=== PATIENT | female | born 1935 | race Two or more races ===

== ENCOUNTER 2017-01-25 12:45 | Inpatient (IN) | payer OTHER ==
--- NOTE | 2017-01-25 13:36 | PDOC ---
History of Present Illness - General Chief Complaint: Cold Symptoms Stated Complaint: COUGH, SORE THROAT, & COLD SYMPTOMS Time Seen by Provider: 01/25/17 13:01 History Source: Patient Exam Limitations: No Limitations - History of Present Illness Initial Comments: 01/25/17 13:28 THis is an 81 yo F with a history of hypertension, arthritis who presents emergency department with cough, rhinorrhea, sore throat. Symptoms reportedly began 4 days ago. Patient called to see her primary care physician, PMD told her to go to the emergency department. Patient symptoms include subjective fevers, cough productive of white phlegm. Patient is fatigued and has having difficulty carrying out her normal activities at home. Patient also reports a sore throat. Patient denies chest pain or shortness of breath. Patient has noted decreased oral intake. Patient has not traveled. Patient denies ill contacts. Patient reportedly refused to take her flu shot or pneumococcal vaccination. PMH: Hypertension, arthritis PSH: Denies Medication: Fosamax, aspirin, losartan/hydrochlorothiazide ALL: NKDA Social: No tobacco, drug, alcohol use GENERAL/CONSTITUTIONAL: Yes: subjective fevers, chills, weakness, loss of appetite. HEAD, EYES, EARS, NOSE AND THROAT: Yes: sore throat No: change in vision, ear pain, discharge. CARDIOVASCULAR: No: chest pain, lightheadedness, palpitations, syncope RESPIRATORY: Yes: cough No: shortness of breath, wheezing, hemoptysis, stridor. GASTROINTESTINAL: No: nausea, vomiting, diarrhea, abdominal pain. GENITOURINARY: No: dysuria, hematuria, frequency, urgency, flank pain. MUSCULOSKELETAL: No: back pain, neck pain, joint pain, muscle swelling or pain SKIN AND BREASTS: No: lesions, pallor, rash or easy bruising. NEUROLOGIC: No: headache, vertigo, paresthesias, weakness ENDOCRINE: No: unexplained weight gain or loss HEMATOLOGIC/LYMPHATIC: No: anemia, easy bleeding, swelling nodes. GENERAL: The patient is in no acute distress. HEAD: Normal with no signs of trauma. EYES: PERRLA, EOMI, sclera anicteric, conjunctiva clear. ENT: Ears normal, nares patent, oropharynx clear without exudates. Moist mucous membranes. NECK: Normal range of motion, supple without lymphadenopathy, JVD, or masses. LUNGS: (+) Left lower lobe crackles otherwise Breath sounds equal, clear to auscultation bilaterally. No wheezes. HEART:Regular rate and rhythm, normal S1 and S2 without murmur, rub or gallop. ABDOMEN: Soft, nontender, normoactive bowel sounds. No guarding, no rebound. No masses palpable. EXTREMITIES: Normal range of motion, no edema. No clubbing or cyanosis. No erythema, or tenderness. NEUROLOGICAL: Cranial nerves II through XII grossly intact. Normal speech. No focal neurological deficits. MUSCULOSKELETAL: Back non-tender to palpation, no CVA tenderness SKIN: Warm, Dry, normal turgor, no rashes or lesions noted. Past History - Past Medical History Allergies/Adverse Reactions: Allergies Allergy/AdvReac Type Severity Reaction Status Date / Time No Known Allergies Allergy Verified 01/25/17 12:53 Home Medications: Ambulatory Orders Alendronate Na [Fosamax (Weekly)] 70 mg PO Q7D 01/25/17 Aspirin [Aspirin EC] 81 mg PO DAILY 01/25/17 Cholecalciferol (Vitamin D3) [Vitamin D3 -] 1,000 unit PO DAILY 01/25/17 Losartan/Hydrochlorothiazide [Losartan-Hctz 100-25 mg Tab] 1 each PO DAILY 01/25 Azithromycin 250 mg PO DAILY #3 tablet 01/26/17 Cefuroxime Axetil [Ceftin -] 500 mg PO Q12H #10 tablet 01/26/17 Guaifenesin [Robitussin -] 10 ml PO Q6H PRN #120 ml MDD 40 01/26/17 Nystatin Ointment [Mycostatin Ointment -] 1 applic TP BID #1 applic 01/26/17 HTN: Yes - Psycho/Social/Smoking Cessation Hx Anxiety: No Suicidal Ideation: No Smoking History: Never smoked Hx Alcohol Use: No Drug/Substance Use Hx: No Substance Use Type: Alcohol *Physical Exam - Vital Signs Last Vital Signs Temp Pulse Resp BP Pulse Ox 97.6 F 85 20 146/52 98 01/25/17 12:52 01/25/17 12:52 01/25/17 12:52 01/25/17 12:52 01/25/17 12:52 ED Treatment Course - LABORATORY CBC & Chemistry Diagram: 01/26/17 08:13 01/26/17 08:13 Medical Decision Making - Medical Decision Making 01/25/17 13:36 Will do labs Will do Chest Xray Will discharge if stable on Azithromycin 01/25/17 14:56 Laboratory Tests 01/25/17 01/25/17 13:55 13:55 WBC 10.8 H Hgb 13.3 Hct 39.8 Plt Count 174 Neutrophils % 74.3 Lymphocytes % 14.5 Sodium 134 L Potassium 3.3 L Chloride 95 L Carbon Dioxide 30 H BUN 31 H Creatinine 0.9 Random Glucose 108 H CXR: Right middle lobe infiltrate CURB-65 = [address] on observation Case reviewed with LACQUER COATER Ivon Will place on observation to hospitalist *DC/Admit/Observation/Transfer Diagnosis at time of Disposition: Pneumonia Qualifiers: Pneumonia type: due to unspecified organism Laterality: right Lung location: middle lobe of lung Qualified Code(s): J18.1 - Lobar pneumonia, unspecified organism - Discharge Dispostion Condition at time of disposition: Improved Admit: Yes - Prescriptions
[2017-01-25 14:29] LABS: BASOPHIL 0.4 % (0-2.0); EOSINOPHIL 0.2 % (0-4.5); MCH 26.9 pg (25.7-33.7); MCHC 33.3 g/dl (32.0-36.0); MEAN CELL VOLUME 80.8 fl (80-96); MEAN PLT VOLUME 10.2 fl (7.5-11.1); NEUTROPHILS 74.3 % (42.8-82.8); PLATELET COUNT 174 K/MM3 (134-434); WHITE BLOOD COUNT 10.8 K/mm3 (4.0-10.0)
[2017-01-25] MEDS ORDERED: CEFTRIAXONE 1 GM in DEXTROSE 5%-WATER - 50 ML IVPB ONE (14:29)
[2017-01-25] MEDS ORDERED: AZITHROMYCIN IVPB 500 MG in DEXTROSE 5%-WATER - 250 ML IVPB ONE (14:29)
[2017-01-25 14:37] LABS: ALBUMIN 3.4 g/dl (3.5-5.0); ALK PHOS 43 U/L (32-92); ANION GAP 9 (8-16); BILIRUBIN,TOTAL 0.3 mg/dl (0.2-1.0); CALCIUM 8.8 mg/dl (8.4-10.2); CO2 30 mmol/L (22-28); CREATININE 0.9 mg/dl (0.6-1.3); GLUCOSE,RANDOM 108 mg/dl (74-106); SGOT/AST 31 U/L (10-42); SGPT/ALT 23 U/L (10-40); TOT PROT 6.8 g/dl (6.4-8.3)
[2017-01-25] MEDS ORDERED: AZITHROMYCIN 500 MG VIAL IVPB ONE (14:40)
[2017-01-25] MEDS ORDERED: cefTRIAXone SODIUM 1 GM VIAL ONE (14:40)
[2017-01-25] MEDS ORDERED: SODIUM CHLORIDE 1,000 ML IV SCH (15:15)
[2017-01-25] MEDS ORDERED: ACETAMINOPHEN 325 MG TABLET (FP) PO PRN (15:15)
[2017-01-25 18:57] VITALS: BMI 29.9
--- NOTE | 2017-01-25 19:29 | HP ---
History & physical obtained with assistance of [employer] [place] slip presser # [id number] CHIEF COMPLAINT: Cough PCP: Dr. Horner HISTORY OF PRESENT ILLNESS: This is an 81 year old [place] female with a history of HTN and osteoporosis who presented to the ED today complaining of 4 days of cough productive of white sputum, subjective fever, throat pain, and nasal congestion. She has not had shortness of breath, chest pain, lower extremity edema, PND, orthopnea, or any other symptoms. ER course was notable for: (1) CXR: RML infiltrate (2) BUN 31 Recent Travel: None PAST MEDICAL HISTORY: As above PAST SURGICAL HISTORY: None Social History: College graduate, used to work for [employer] in [place]. Lives with son and [id number], has [facility] services 20h/wk. Smoking: Never smoker Alcohol: None Family History: Non-contributory to this admission Allergies No Known Allergies Allergy (Verified 01/25/17 12:53) HOME MEDICATIONS: Home Medications Medication Instructions Recorded Alendronate Na [Fosamax] 70 mg PO Q7D 01/25/17 Aspirin [Aspirin EC] 81 mg PO DAILY 01/25/17 Cholecalciferol (Vitamin D3) 1,000 unit PO DAILY 01/25/17 [Vitamin D3 -] Losartan/Hydrochlorothiazide 1 each PO DAILY 01/25/17 [Losartan-Hctz 100-25 mg Tab] REVIEW OF SYSTEMS CONSTITUTIONAL: Subjective fever Absent: diaphoresis, generalized weakness, malaise, loss of appetite, weight change HEENT: Nasal congestion, throat pain Absent: difficulty swallowing, mouth swelling, ear pain, eye pain, visual changes CARDIOVASCULAR: Absent: chest pain, syncope, palpitations, irregular heart rate, lightheadedness , peripheral edema RESPIRATORY: Productive cough Absent: shortness of breath, dyspnea with exertion, orthopnea, wheezing, stridor , hemoptysis GASTROINTESTINAL: Absent: abdominal pain, abdominal distension, nausea, vomiting, diarrhea, constipation, melena, hematochezia GENITOURINARY: Absent: dysuria, frequency, urgency, hesitancy, hematuria, flank pain, genital pain MUSCULOSKELETAL: Absent: myalgia, arthralgia, joint swelling, back pain, neck pain SKIN: Absent: rash, itching, pallor HEMATOLOGIC/IMMUNOLOGIC: Absent: easy bleeding, easy bruising, lymphadenopathy, frequent infections ENDOCRINE: Absent: unexplained weight gain, unexplained weight loss, heat intolerance, cold intolerance NEUROLOGIC: Absent: headache, focal weakness or paresthesias, dizziness, unsteady gait, seizure, mental status changes, bladder or bowel incontinence PSYCHIATRIC: Absent: anxiety, depression, suicidal or homicidal ideation, hallucinations. PHYSICAL EXAMINATION Vital Signs - 24 hr 01/25/17 18:36 Temperature 98.5 F Pulse Rate 70 Respiratory 20 Rate Blood Pressure 134/47 GENERAL: Awake, alert, and fully oriented, in no acute distress. HEAD: Normal with no signs of trauma. EYES: Pupils equal, round and reactive to light, extraocular movements intact, sclera anicteric, conjunctiva clear. No lid lag. EARS, NOSE, THROAT: Ears normal, nares patent, oropharynx clear without exudates. Moist mucous membranes. NECK: Normal range of motion, supple without lymphadenopathy, JVD, or masses. LUNGS: Breath sounds diminished right base, scattered ronchi. No wheezes, and no crackles. No accessory muscle use. HEART: Regular rate and rhythm, normal S1 and S2 without murmur, rub or gallop. ABDOMEN: Soft, nontender, not distended, normoactive bowel sounds, no guarding, no rebound, no masses. No hepatomegaly or splenomegaly. MUSCULOSKELETAL: Normal range of motion at all joints. No bony deformities or tenderness. No CVA tenderness. UPPER EXTREMITIES: 2+ pulses, warm, well-perfused. No cyanosis. No clubbing. No peripheral edema. LOWER EXTREMITIES: 2+ pulses, warm, well-perfused. No calf tenderness. No peripheral edema. NEUROLOGICAL: Cranial nerves II-XII intact. Normal speech. Normal gait. PSYCHIATRIC: Cooperative. Good eye contact. Appropriate mood and affect. SKIN: Warm, dry, normal turgor, no rashes or lesions noted, normal capillary refill. ASSESSMENT/PLAN: 81 year old female with pneumonia. CURB-65=2. Problem List - Problem (1) Pneumonia Assessment/Plan: -Ceftriaxone/Azithromycin -Follow up blood cultures, urine antigens -Gentle hydration -Albuterol nebs prn -Follow BUN Code(s): J18.9 - PNEUMONIA, UNSPECIFIED ORGANISM Qualifiers: Pneumonia type: due to unspecified organism Laterality: right Lung location: middle lobe of lung Qualified Code(s): J18.1 - Lobar pneumonia , unspecified organism (2) Hypertension Assessment/Plan: -BPs at goal for age -Hold Losartan/HCTZ for now (BUN 31) Code(s): I10 - ESSENTIAL (PRIMARY) HYPERTENSION (3) DVT prophylaxis Assessment/Plan: -Ambulation -[facility] Code(s): [id number] - Visit type - Emergency Visit Emergency Visit: Yes ED Registration Date: 01/25/17 Care time: The patient presented to the Emergency Department on the above date and was hospitalized for further evaluation of their emergent condition. - New Patient This patient is new to me today: Yes Date on this admission: 01/25/17 - Critical Care Critical Care patient: No
[2017-01-25] MEDS ORDERED: POTASSIUM CHLORIDE TABS 20 MEQ TABLET.ER (FP) PO ONE (19:40)
[2017-01-25] MEDS ORDERED: guaiFENesin 200 MG/10 ML 10 ML UNIT-DOSE CUPS PO PRN (19:41)
[2017-01-25] MEDS: HEPARIN NA (PORCINE) 5,000 UNITS/ML 1ML VIAL SQ SCH (21:18)
[2017-01-25] MEDS: DOCUSATE SODIUM 100 MG CAPSULE (FP) PO SCH (21:18)
[2017-01-25] MEDS: NYSTATIN 100000 UNIT/GM TOPICAL OINTMENT 15 GM TUBE TP SCH (22:39)
[2017-01-26] MEDS: DOCUSATE SODIUM 100 MG CAPSULE (FP) PO SCH ×2 (06:53→17:03)
[2017-01-26 08:21] LABS: BASOPHIL 1.1 % (0-2.0); EOSINOPHIL 0.1 % (0-4.5); MCH 27.2 pg (25.7-33.7); MCHC 33.4 g/dl (32.0-36.0); MEAN CELL VOLUME 81.3 fl (80-96); MEAN PLT VOLUME 9.4 fl (7.5-11.1); NEUTROPHILS 76.8 % (42.8-82.8); PLATELET COUNT 186 K/MM3 (134-434); RDW 13.6 % (11.6-15.6)
--- NOTE | 2017-01-26 08:41 | PN ---
Physical Exam: SUBJECTIVE: Patient seen and examined OBJECTIVE: Vital Signs Period Temp Pulse Resp BP Sys/Hines Pulse Ox Last 24 Hr 98.5 F-99.0 F 70-75 17-20 127-134/44-47 94 GENERAL: The patient is awake, alert, and fully oriented, in no acute distress. HEAD: Normal with no signs of trauma. EYES: PERRL, extraocular movements intact, sclera anicteric, conjunctiva clear. No ptosis. ENT: Ears normal, nares patent, oropharynx clear without exudates, moist mucous membranes. NECK: Trachea midline, full range of motion, supple. LUNGS: Breath sounds equal, clear to auscultation bilaterally, no wheezes, no crackles, no accessory muscle use. HEART: Regular rate and rhythm, S1, S2 without murmur, rub or gallop. ABDOMEN: Soft, nontender, nondistended, normoactive bowel sounds, no guarding, no rebound, no hepatosplenomegaly, no masses. EXTREMITIES: 2+ pulses, warm, well-perfused, no edema. NEUROLOGICAL: Cranial nerves II through XII grossly intact. Normal speech, gait not observed. PSYCH: Normal mood, normal affect. SKIN: Warm, dry, normal turgor, no rashes or lesions noted Laboratory Results - last 24 hr 01/26/17 08:13 WBC 10.0 RBC 4.65 Hgb 12.6 Hct 37.8 MCV 81.3 MCHC 33.4 RDW 13.6 Plt Count 186 MPV 9.4 Neutrophils % 76.8 Lymphocytes % 11.9 Monocytes % 10.1 Eosinophils % 0.1 Basophils % 1.1 Active Medications Generic Name Dose Route Start Last Admin Trade Name Freq PRN Reason Stop Dose Admin Acetaminophen 650 mg 01/25/17 15:15 Tylenol - PO Q4H PRN FEVER OR PAIN Aspirin 81 mg 01/26/17 10:00 Ecotrin - PO DAILY KHLOE Cholecalciferol 1,000 unit 01/26/17 10:00 Vitamin D3 - PO DAILY KHLOE Docusate Sodium 100 mg 01/25/17 22:00 01/26/17 06:53 Colace - PO Not Given TID KHLOE Guaifenesin 10 ml 01/25/17 19:41 Robitussin - PO Q6H PRN COUGH Heparin Sodium (Porcine) 5,000 unit 01/25/17 22:00 01/25/17 21:18 Heparin - SQ Not Given BID [facility] Azithromycin 250 mls @ 250 mls/hr 01/26/17 10:00 Zithromax 500mg Ivpb (Pre-Docked) IVPB DAILY [facility] Ceftriaxone Sodium 50 mls @ 100 mls/hr 01/26/17 10:00 Rocephin 1gm Ivpb (Pre-Docked) IVPB DAILY [facility] Nystatin 1 applic 01/25/17 22:00 01/25/17 22:39 Mycostatin Ointment - TP 1 applic BID [facility] Administration ASSESSMENT/PLAN: Problem List - Problems (1) Pneumonia Code(s): J18.9 - PNEUMONIA, UNSPECIFIED ORGANISM Qualifiers: Pneumonia type: due to unspecified organism Laterality: right Lung location: middle lobe of lung Qualified Code(s): J18.1 - Lobar pneumonia , unspecified organism (2) Hypertension Code(s): I10 - ESSENTIAL (PRIMARY) HYPERTENSION (3) DVT prophylaxis Code(s): [id number] -
[2017-01-26 08:43] LABS: ALK PHOS 43 U/L (32-92); ANION GAP 6 (8-16); BILIRUBIN,TOTAL 0.6 mg/dl (0.2-1.0); CALCIUM 8.4 mg/dl (8.4-10.2); CO2 29 mmol/L (22-28); COCKROFT - GAULT 60.4435; CREATININE 0.8 mg/dl (0.6-1.3); GLUCOSE,RANDOM 110 mg/dl (74-106); SGOT/AST 27 U/L (10-42); SGPT/ALT 22 U/L (10-40); TOT PROT 6.3 g/dl (6.4-8.3)
--- NOTE | 2017-01-26 09:20 | DS ---
Physical Exam: SUBJECTIVE: Patient seen and examined. States that cough has improved, feeling better. OBJECTIVE: Vital Signs Period Temp Pulse Resp BP Sys/Hines Pulse Ox Last 24 Hr 98.5 F-99.0 F 70-75 17-20 127-134/44-47 94 PHYSICAL EXAM GENERAL: The patient is awake, alert, and fully oriented, in no acute distress. HEAD: Normal with no signs of trauma. EYES: PERRL, extraocular movements intact, sclera anicteric, conjunctiva clear. ENT: Ears normal, nares patent, oropharynx clear without exudates, moist mucous membranes. NECK: Trachea midline, full range of motion, supple. LUNGS: Breath sounds slightly diminished at right base, no wheezes, no crackles , no accessory muscle use. Breathing even and unlabored on room air. HEART: Regular rate and rhythm, S1, S2 without murmur, rub or gallop. ABDOMEN: Soft, nontender, nondistended, normoactive bowel sounds, no guarding, no rebound, no hepatosplenomegaly, no masses. EXTREMITIES: 2+ pulses, warm, well-perfused, no edema. NEUROLOGICAL: Cranial nerves II through XII grossly intact. Normal speech, gait not observed. PSYCH: Normal mood, normal affect. SKIN: Warm, dry, normal turgor, no rashes or lesions noted. LABS Laboratory Results - last 24 hr 01/26/17 01/26/17 08:13 08:13 WBC 10.0 RBC 4.65 Hgb 12.6 Hct 37.8 MCV 81.3 MCHC 33.4 RDW 13.6 Plt Count 186 MPV 9.4 Neutrophils % 76.8 Lymphocytes % 11.9 Monocytes % 10.1 Eosinophils % 0.1 Basophils % 1.1 Sodium 137 Potassium 3.5 Chloride 102 Carbon Dioxide 29 H Anion Gap 6 L BUN 20 H D Creatinine 0.8 Creat Clearance w eGFR > 60 Random Glucose 110 H Calcium 8.4 Total Bilirubin 0.6 D AST 27 ALT 22 Alkaline Phosphatase 43 Total Protein 6.3 L Albumin 3.0 L HOSPITAL COURSE: This is an 81 year old female with a history of HTN and osteoporosis who presented to the ED yesterday complaining of 4 days of cough productive of white sputum, subjective fever, throat pain, and nasal congestion. She has not had shortness of breath, chest pain, lower extremity edema, PND, orthopnea, or any other symptoms. ER course was notable for: (1) CXR: RML infiltrate (2) BUN 31 The patient was placed on Ceftriaxone and Azithromycin IVPB. She was given guaifenesin for cough. A fungal-appearing rash was noted under her breasts and she was placed on Nystatin ointment for this. Because of her high BUN, her Losartan/HCTZ was held and gentle fluids were given. Her K was 3.3 and this was repleted with 20 mEq PO. Today, the patient is feeling better and states that her cough has improved. Lung exam is notable for better aeration at the right base. BUN has improved from 31 to 20. The patient will be discharged home with her family on Ceftin/ Azithromycin. She will follow up with her PCP on Saturday. Return precautions reviewed. Date of Admission:01/25/17 Date of Discharge: 01/26/17 Minutes to complete discharge: 35 Discharge Summary Reason For Visit: PNEUMONIA Current Active Problems DVT prophylaxis (Acute) Hypertension (Acute) Pneumonia (Acute) Condition: Improved - Instructions Diet, Activity, Other Instructions: -Take Ceftin and Azithromycin (antibiotics) as prescribed for pneumonia. -Use guaifenesin syrup as needed for cough. -Apply Nystatin ointment to red areas under breasts. -Follow up with Dr. Liu on Saturday. -Return here for difficulty breathing or any other concerning symptoms. Referrals: Diane Arreguin MD [Primary Care Provider] - Disposition: HOME - Home Medications Comprehensive Discharge Medication List: Ambulatory Orders Alendronate Na [Fosamax] 70 mg PO Q7D 01/25/17 Aspirin [Aspirin EC] 81 mg PO DAILY 01/25/17 Cholecalciferol (Vitamin D3) [Vitamin D3 -] 1,000 unit PO DAILY 01/25/17 Losartan/Hydrochlorothiazide [Losartan-Hctz 100-25 mg Tab] 1 each PO DAILY 01/25 Problem List - Problems (1) Pneumonia Code(s): J18.9 - PNEUMONIA, UNSPECIFIED ORGANISM Qualifiers: Pneumonia type: due to unspecified organism Laterality: right Lung location: middle lobe of lung Qualified Code(s): J18.1 - Lobar pneumonia , unspecified organism (2) Hypertension Code(s): I10 - ESSENTIAL (PRIMARY) HYPERTENSION (3) DVT prophylaxis Code(s): [id number] - This patient is new to me today: No Emergency Visit: Yes ED Registration Date: 01/25/17 Care time: The patient presented to the Emergency Department on the above date and was hospitalized for further evaluation of their emergent condition. Critical Care patient: No - Discharge Referral Referred to [facility] Med [facility] No
[2017-01-26] MEDS ORDERED: CHOLECALCIFEROL (VITAMIN D3) 1,000 UNIT TABLET (FP) PO SCH (10:00)
[2017-01-26] MEDS ORDERED: CEFTRIAXONE 50 ML IVPB SCH (10:00)
[2017-01-26] MEDS ORDERED: ASPIRIN COATED 81 MG TABLET.EC PO SCH (10:00)
[2017-01-26] MEDS ORDERED: AZITHROMYCIN IVPB 250 ML IVPB SCH (10:00)
[2017-01-26] MEDS: NYSTATIN 100000 UNIT/GM TOPICAL OINTMENT 15 GM TUBE TP SCH (11:20)
[2017-01-26] MEDS: HEPARIN NA (PORCINE) 5,000 UNITS/ML 1ML VIAL SQ SCH (11:20)
[2017-01-26 14:21] VITALS: BP 128/45; PULSE 71; TEMP 97.8
--- NOTE | 2017-01-28 09:13 | EKG ---
Test Reason : Blood Pressure : / mmHG Vent. Rate : 076 BPM Atrial Rate : 076 BPM P-R Int : 134 ms QRS Dur : 070 ms QT Int : 394 ms P-R-T Axes : 039 002 009 degrees QTc Int : 443 ms SINUS RHYTHM CANNOT RULE OUT INFERIOR INFARCT NO PREVIOUS ECGS AVAILABLE Confirmed by LUDMILA KIMBALL MD ([id number]) on 01/28/2017 9:12:29 AM Referred By: MD CATALAN Confirmed By:LUDMILA KIMBALL MD
== END 2017-01-26 18:29 | disposition home or self-care (01) | DRG 139 ==
LOC: FER 12:45 → FM/S 16:06 → OBSVTOIN 16:06 → UNDOADMOB 16:28 → FM/S 16:28
PROVIDERS: ADMIT Internal Medicine; ATTEND Registered Nurse Emergency
DX: J18.9 Pneumonia, unspecified organism (principal); I10 Essential (primary) hypertension; M19.90 Unspecified osteoarthritis, unspecified site; M81.0 Age-related osteoporosis without current pathological fracture
CPT/HCPCS: 36415; 71020-TC; 80053; 85025; 87040; 93005; 99284-25; J1644

== ENCOUNTER 2017-06-12 22:00 | Emergency (ER) | payer OTHER ==
[2017-06-12 22:07] VITALS: BP 157/59; PULSE 100; TEMP 98.6; BMI 30.2
--- NOTE | 2017-06-12 22:23 | PDOC ---
History of Present Illness - General Chief Complaint: Diarrhea Stated Complaint: DIARRHEA Time Seen by Provider: 06/12/17 22:02 - History of Present Illness Initial Comments: This 82-year-old woman with a history of hypertension and osteoporosis, presents with 5 day history of loose stools. Typically, stool is formed and soft in the morning and gradually becomes more watery in the afternoon. There are times that there is mucus in the stool but no history of blood or black stool. There has been no nausea or vomiting during this time and patient able to tolerate usual oral intake. The patient denies fever/chills or abdominal pain except cramping just prior to bowel movements. No recent change in medication or unusual food ingestion. She has had no recent oral antibiotics. No recent travel. Patient is taking her medications as prescribed. Past History - Past Medical History Allergies/Adverse Reactions: Allergies Allergy/AdvReac Type Severity Reaction Status Date / Time No Known Allergies Allergy Verified 01/25/17 12:53 Home Medications: Ambulatory Orders Alendronate Na [Fosamax (Weekly)] 70 mg PO Q7D 01/25/17 Aspirin [Aspirin EC] 81 mg PO DAILY 01/25/17 Cholecalciferol (Vitamin D3) [Vitamin D3 -] 1,000 unit PO DAILY 01/25/17 Losartan/Hydrochlorothiazide [Losartan-Hctz 100-25 mg Tab] 1 each PO DAILY 01/25 HTN: Yes - Psycho/Social/Smoking Cessation Hx Anxiety: No Suicidal Ideation: No Smoking History: Unknown if ever smoked Have you smoked in the past 12 months: No Number of Cigarettes Smoked Daily: 0 Information on smoking cessation initiated: No Hx Alcohol Use: No Drug/Substance Use Hx: No Substance Use Type: Alcohol Review of Systems - Review of Systems Able to Perform ROS?: Yes Comments:: 12 point review of systems is negative except for what is noted in the history of present illness *Physical Exam - Vital Signs Last Vital Signs Temp Pulse Resp BP Pulse Ox 98.6 F 100 H 14 157/59 98 06/12/17 22:01 06/12/17 22:01 06/12/17 22:01 06/12/17 22:01 06/12/17 22:01 - Physical Exam Comments: GENERAL: Elderly female, alert and oriented 3, in no acute distress HEAD: Normal with no signs of trauma. EYES: PERRLA, EOMI, sclera anicteric, conjunctiva clear. ENT: Ears normal, nares patent, oropharynx clear without exudates. Dry mucous membranes. NECK: Normal range of motion, supple without lymphadenopathy, JVD, or masses. LUNGS: Breath sounds equal, clear to auscultation bilaterally. No wheezes, and no crackles. HEART:Regular rate and rhythm, normal S1 and S2 without murmur, rub or gallop. ABDOMEN:.normal bowel sounds No guarding,tenderness or rebound.No masses No distention. Rectal exam: Normal tone, no masses, dark brown stool sent for Hemoccult testing EXTREMITIES: Normal range of motion, no edema. No clubbing or cyanosis. No erythema, or tenderness. NEUROLOGICAL: Cranial nerves II through XII grossly intact. Normal speech. No focal neurological deficits. MUSCULOSKELETAL: Back non-tender to palpation, no CVA tenderness SKIN: Warm, Dry, normal turgor, no rashes or lesions noted. ED Treatment Course - LABORATORY CBC & Chemistry Diagram: 06/12/17 22:55 06/12/17 22:55 Progress Note - Progress Note Progress Note: 82-year-old woman presents with several day history of change in bowel movements : Intermittent loose stools without evidence of melena or hematochezia. Of note , patient has no vomiting, fever or abdominal pain. Exam as noted shows no abdominal tenderness. CBC/chemistry profile was sent. CBC is unremarkable with no elevation of white blood cell count. Chemistry profile notable for sodium of 135 with potassium 2.9. There is evidence of prerenal azotemia with BUN of 37 and a creatinine of 1.5 (baseline creatinine is at approximately 1) Hemoccult stool is negative Patient given 40 milliequivalents KCl by mouth. Clinical presentation consistent with acute colitis. In the absence of fever/ elevated white blood cell count, less likely that this is bacterial origin or inflammatory. Patient was instructed to continue to drink plenty of fluids. She should also use Imodium or Pepto-Bismol for control of the diarrhea. Most importantly, patient should follow-up with her general doctor within the next few days. She should return to the emergency room if she develops vomiting or fever *DC/Admit/Observation/Transfer Diagnosis at time of Disposition: Diarrhea Qualifiers: Diarrhea type: unspecified type Qualified Code(s): R19.7 - Diarrhea, unspecified - Discharge Dispostion Disposition: HOME Condition at time of disposition: Stable - Patient Instructions Printed Discharge Instructions: Diarrhea Additional Instructions: Drink plenty of water Continue potassium-rich foods such as bananas Continue Imodium as needed after each loose stool Can also consider Pepto-Bismol as needed Follow-up with your general doctor within the next 5 days Return to ER if you have vomiting/abdominal pain/fever or if you see blood in stool
[2017-06-12 23:13] LABS: BASOPHIL 0.2 % (0-2.0); EOSINOPHIL 1.1 % (0-4.5); MCH 28.7 pg (25.7-33.7); MCHC 35.2 g/dl (32.0-36.0); MEAN CELL VOLUME 81.5 fl (80-96); MEAN PLT VOLUME 9.4 fl (7.5-11.1); NEUTROPHILS 74.6 % (42.8-82.8); PLATELET COUNT 174 K/MM3 (134-434); RDW 13.5 % (11.6-15.6)
[2017-06-12 23:21] LABS: ALBUMIN 3.4 g/dl (3.5-5.0); ALK PHOS 40 U/L (32-92); ANION GAP 8 (8-16); BILIRUBIN,TOTAL 0.5 mg/dl (0.2-1.0); CALCIUM 8.8 mg/dl (8.4-10.2); CO2 27 mmol/L (22-28); CREATININE 1.5 mg/dl (0.6-1.3); GLUCOSE,RANDOM 164 mg/dl (74-106); SGOT/AST 19 U/L (10-42); SGPT/ALT 12 U/L (10-40); TOT PROT 6.2 g/dl (6.4-8.3)
[2017-06-12] MEDS ORDERED: POTASSIUM CHLORIDE TABS 20 MEQ TABLET.ER (FP) PO ONE ×2 (23:44→23:46)
== END 2017-06-12 23:56 | disposition home or self-care (01) ==
LOC: FER 22:00
DX: R19.7 Diarrhea, unspecified (principal); I10 Essential (primary) hypertension; M81.0 Age-related osteoporosis without current pathological fracture
CPT/HCPCS: 36415; 80053; 82272; 85025; 99282-25

== ENCOUNTER 2017-06-19 19:42 | Emergency (ER) | payer OTHER ==
--- NOTE | 2017-06-19 19:53 | PDOC ---
History of Present Illness - General History Source: Patient Exam Limitations: No Limitations - History of Present Illness Initial Comments: 06/19/17 20:05 Patient is a 82 year old female with pmhx of HTN and osteoporosis who presents to the ED with diarrhea for a week and a half. She reports multiple episodes of loose stools, NBNB, everyday. She reports 7 bowel movements today. She reports cramping pain right before bowel movement but denies any pain otherwise. Patient states that she was evaluated on 06/12 in [facility] and was prescribed medication with mild relief and was told to follow up with her PMD. Patient had blood work done by PCP on Saturday and is awaiting for the doctor to return from vacation for further evaluation of her potassium. She denies nausea, vomiting, constipation, or abdominal pain. No fever or chills. She denies any cp or SOB. She denies weakness or LOC. PCP - Dr Olmedo PAST MEDICAL HISTORY: HTN and osteoporosis PAST SURGICAL HISTORY: no significant history FAMILY HISTORY: no pertinent history SOCIAL HISTORY: Pt lives with family. MEDICATIONS: reviewed ALLERGIES: As per nursing notes General: No fevers or chills, no weakness, no weight loss HEENT: No change in vision. No sore throat, No ear pain CardioVascular: No chest pain or shortness of breath Respiratory:No cough, or wheezing. Gastrointestinal: +diarrhea. no nausea, vomiting, or constipation, No rectal bleeding Genitourinary: No dysuria, hematuria, or frequency Musculoskeletal: No joint or muscle pain or swelling Neurologic: No headache, vertigo, dizziness or loss of consciousness Psychiatric: nor depression Skin: No rashes or easy bruising Endocrine: no increased thirst or abnormal weight change Allergic: no skin or latex allergy All other systems reviewed and normal General: Well-nourished well-developed individual, no acute distress HEENT: (+) Dry mucous membranes. Throat: Normal, tonsils normal, no erythema or exudate Neck: Supple, no meningeal signs, no lymphadenopathy Eyes::Pupils equal reactive and round, extraocular motion intact Chest: Nontender to palpation Cardiac: S1-S2 normal, regular rate and rhythm, no murmurs rubs or gallops Respiratory: Lungs clear to auscultation bilateral Abdomen: Soft, nondistended, normal bowel sounds, nontender to palpation diffusely Extremities: Warm, dry, no cyanosis, clubbing, or edema Skin: No rashes Neuro: Alert and oriented x3, nonfocal exam, grossly intact, normal gait Psych: Normal mood and affect <Michaelle Walter - Last Filed: 06/19/17 20:24> - General History Source: Patient, Family Exam Limitations: No Limitations - History of Present Illness Initial Comments: 06/19/17 21:45 A portion of this note was documented by scribe services under my direction. I have reviewed the details of the note, within reason, and agree with the documentation. The case summary and management plan written by me. EKG Normal sinus rhythm at a rate of 76, normal intervals, there is no prolongation of the QT, no acute ST-T wave changes, normal EKG Assessment and plan: This is an 82-year-old female who comes in complaining of multiple episodes of diarrhea over the last week and a half. Patient was here approximately one week ago and her potassium was low at that time and she was clinically mildly dehydrated. Patient was hydrated in the emergency room told to drink plenty of fluids started on Imodium and given oral potassium. Patient followed up with her primary care doctor approximately 3 days later had her potassium repeated but did not get the results as her doctor when on medication. Patient said she continues to have intermittent diarrhea for which she has been taking Pepto-Bismol and Imodium. Patient had a workup here in the emergency room including a cardiogram and blood work. Patient's potassium here in the emergency room was normal today. Patient has normal vitals and is afebrile here in the emergency room. Patient's labs reveal normal white count with no left shift. Patients potassium is normal at 3.6, patient's chemistries are otherwise unremarkable with no elevation of her BUN and creat. Patient however was given approximately 1 L of fluid here in the emergency room and a cardiogram was done to make sure there is no prolongation of the QT interval. As patient was told to continue her Imodium. A prescription for Imodium was sent to the pharmacy and patient was told to continue up to 4 tablets a day for the diarrhea. Patient was unable to give us a stool specimen here in the emergency room so I told her cheek needed to make sure she followed up with her doctor next week and the that he evaluated her stool for ova and parasites. <Wilson Rios I - Last Filed: 06/19/17 21:50> - General Chief Complaint: Diarrhea Stated Complaint: DIARRHEA Time Seen by Provider: 06/19/17 19:53 Past History <Michaelle Walter - Last Filed: 06/19/17 20:24> - Past Medical History HTN: Yes - Psycho/Social/Smoking Cessation Hx Anxiety: No Suicidal Ideation: No Smoking History: Unknown if ever smoked Have you smoked in the past 12 months: No Number of Cigarettes Smoked Daily: 0 Information on smoking cessation initiated: No Hx Alcohol Use: No Drug/Substance Use Hx: No Substance Use Type: Alcohol <Wilson Rios I - Last Filed: 06/19/17 21:50> - Past Medical History Allergies/Adverse Reactions: Allergies Allergy/AdvReac Type Severity Reaction Status Date / Time No Known Allergies Allergy Verified 01/25/17 12:53 Home Medications: Ambulatory Orders Alendronate Na [Fosamax (Weekly)] 70 mg PO Q7D 01/25/17 Aspirin [Aspirin EC] 81 mg PO DAILY 01/25/17 Cholecalciferol (Vitamin D3) [Vitamin D3 -] 1,000 unit PO DAILY 01/25/17 Losartan/Hydrochlorothiazide [Losartan-Hctz 100-25 mg Tab] 1 each PO DAILY 01/25 Loperamide HCl [Imodium A-D] 2 mg PO QID PRN #28 capsule 06/19/17 *Physical Exam - Vital Signs Last Vital Signs Temp Pulse Resp BP Pulse Ox 98 F 81 14 107/84 99 06/19/17 19:44 06/19/17 19:44 06/19/17 19:44 06/19/17 19:44 06/19/17 19:44 <Michaelle Walter - Last Filed: 06/19/17 20:24> - Vital Signs Last Vital Signs Temp Pulse Resp BP Pulse Ox 98 F 81 14 107/84 99 06/19/17 19:44 06/19/17 19:44 06/19/17 19:44 06/19/17 19:44 06/19/17 19:44 <Wilson Rios I - Last Filed: 06/19/17 21:50> ED Treatment Course - LABORATORY CBC & Chemistry Diagram: 06/19/17 20:18 06/19/17 20:18 <Michaelle Walter - Last Filed: 06/19/17 20:24> - LABORATORY CBC & Chemistry Diagram: 06/19/17 20:18 06/19/17 20:18 <Wilson Rios I - Last Filed: 06/19/17 21:50> *DC/Admit/Observation/Transfer - Attestations Scribe Attestion: 06/19/17 20:05 Documentation prepared by RICARDO Wallace, acting as medical coding specialist for Wilson Rios MD. <Michaelle Walter - Last Filed: 06/19/17 20:24> - Discharge Dispostion Admit: No <Wilson Rios I - Last Filed: 06/19/17 21:50> Diagnosis at time of Disposition: Diarrhea Qualifiers: Diarrhea type: unspecified type Qualified Code(s): R19.7 - Diarrhea, unspecified - Discharge Dispostion Disposition: HOME Condition at time of disposition: Good - Prescriptions Prescriptions: Loperamide HCl [Imodium A-D] 2 mg PO QID PRN #28 capsule PRN Reason: Diarrhea - Patient Instructions Additional Instructions: I have sent a prescription to your pharmacy for more Imodium. You can take the Imodium as often as 4 times a day. Do not exceed 4 tablets a day. Follow-up with your doctor when he gets back from vacation next week if you're continuing to have any diarrhea. Return to the emergency department immediately with ANY new, persistent or worsening symptoms. Continue any medications as previously prescribed by your physician. You should follow up with your primary doctor as soon as possible regarding today's emergency department visit. . Please make sure your doctor reviews the results of your emergency evaluation. Thank you for coming to the Emergency Department today for your care. It was a pleasure to see you today. Please note that your evaluation is INCOMPLETE until you follow-up with your doctor.
[2017-06-19 19:56] VITALS: BP 107/84; PULSE 81; TEMP 98; BMI 26.6
[2017-06-19] MEDS ORDERED: SODIUM CHLORIDE 1,000 ML IV ONE (20:11)
[2017-06-19 20:42] LABS: MCH 27.3 pg (25.7-33.7); MCHC 33.4 g/dl (32.0-36.0); MEAN CELL VOLUME 81.8 fl (80-96); MEAN PLT VOLUME 9.6 fl (7.5-11.1); PLATELET COUNT 256 K/MM3 (134-434); RDW 13.4 % (11.6-15.6); WHITE BLOOD COUNT 7.2 K/mm3 (4.0-10.8)
[2017-06-19 20:45] LABS: ALBUMIN 3.4 g/dl (3.5-5.0); ALK PHOS 45 U/L (32-92); ANION GAP 10 (8-16); BILIRUBIN,TOTAL 0.4 mg/dl (0.2-1.0); CALCIUM 9.2 mg/dl (8.4-10.2); CO2 28 mmol/L (22-28); CPK 98 IU/L (26-192); GLUCOSE,RANDOM 102 mg/dl (74-106); SGOT/AST 18 U/L (10-42); SGPT/ALT 11 U/L (10-40); TOT PROT 6.5 g/dl (6.4-8.3)
[2017-06-19 20:58] LABS: TROPONIN I (DFP) < 0.03 ng/ml (0.03-0.50)
[2017-06-19 21:28] LABS: PLATELET ESTIMATE ADEQUATE (NORMAL)
[2017-06-19 21:29] LABS: METAMYELOCYTE 1 % (0-2); MYELOCYTE 1 % (0-2); REACTIVE LYMPHOCYTES 1 % (0-80)
--- NOTE | 2017-06-20 08:48 | EKG ---
Test Reason : Blood Pressure : / mmHG Vent. Rate : 076 BPM Atrial Rate : 076 BPM P-R Int : 156 ms QRS Dur : 066 ms QT Int : 394 ms P-R-T Axes : 071 006 021 degrees QTc Int : 443 ms SINUS RHYTHM LOW VOLTAGE QRS CANNOT RULE OUT INFERIOR INFARCT WHEN COMPARED WITH ECG OF 25-JAN-2017 15:59, NO SIGNIFICANT CHANGE WAS FOUND Confirmed by LUDMILA KIMBALL MD ([id number]) on 06/20/2017 8:48:22 AM Referred By: MD DIAZ Confirmed By:LUDMILA KIMBALL MD
== END 2017-06-19 21:57 | disposition home or self-care (01) ==
LOC: FER 19:42
PROC: 3E0337Z Introduction of Electrolytic and Water Balance Substance into Peripheral Vein, Percutaneous Approach (ICD-10-PCS; principal; 2017-06-19)
DX: R19.7 Diarrhea, unspecified (principal); I10 Essential (primary) hypertension; M81.0 Age-related osteoporosis without current pathological fracture
CPT/HCPCS: 36415; 80053; 84484; 85025; 93005; 96360; 99283-25